=== PATIENT | male | born 2000 | race Caucasian/White ===

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

== ENCOUNTER 2020-12-18 14:32 | Emergency (ER) | payer OTHER ==
[~2020-12-18] VITALS: Ht 182.9 cm; Wt 90.7 kg
[~2020-12-18 14:32] MED LIST: CONCERTA27 MG PO; MEDROLDOSEPACK PO; PEPCID20 MG PO
[2020-12-18] MEDS ORDERED: FLEXERIL PO (15:16)
[2020-12-18 15:43] VITALS: BP 134/72
== END 2020-12-18 15:45 | disposition home or self-care (01) ==
LOC: M.ERS 14:32
DX: M54.2 Cervicalgia (principal); F90.9 Attention-deficit hyperactivity disorder, unspecified type; Z79.899 Other long term (current) drug therapy; Z88.1 Allergy status to other antibiotic agents; Z88.8 Allergy status to other drugs, medicaments and biological substances